=== PATIENT | male | born 1990 | race Hispanic/Latino ===

== ENCOUNTER → 2018-09-07 | Outpatient (CLI) | payer OTHER ==
--- NOTE | 2018-09-07 13:05 | Diagnostic Imaging Report ---
Exam: Right knee series; 3 views dated 09/07/2018 at 12:05 PM History: Pain; light trauma Comparison: None available Findings: No fracture or dislocation. There is no evidence of a joint effusion. Soft tissues are intact. A flabella is noted in the posterior popliteal space. Impression: Normal study. Signed by: Dr. Florin Montalvo DO on 09/07/2018 1:01 PM
== END ==
LOC: EDSEX 11:47 → RAD 11:47
PROVIDERS: ATTEND Family Medicine
DX: M25.561 Pain in right knee (principal)